=== PATIENT | female | born 1975 | race Caucasian/White ===

== ENCOUNTER 2020-05-16 15:32 | Inpatient (IN) | payer MEDICAID ==
[~2020-05-16] VITALS: Ht 165.1 cm; Wt 80.3 kg
[2020-05-16] MEDS ORDERED: ONDANSETRON HCL 4MG/2ML INJ IV STA (16:36)
[2020-05-16] MEDS ORDERED: SODIUM CHLORIDE 0.9% 1,000 ML IV ONE (16:36)
[2020-05-16] MEDS ORDERED: FAMOTIDINE 20MG/2ML VIAL IV STA (16:36)
[2020-05-16 17:01] LABS: HEMATOCRIT. 43.2 % (36.0-48.0); HEMOGLOBIN. 14.8 g/dL (12.0-16.0); MEAN CORPUSCULAR HEMOGLOBIN 29.8 pg (28.0-32.0); MEAN CORPUSCULAR VOLUME 86.8 fL (81.0-99.0); MEAN PLATELET VOLUME 8.5 fl (7.4-10.4); PLATELET 322 x1000/uL (130-400); RED BLOOD CELL COUNT 4.98 mill/uL (4.2-5.4); RED CELL DISTRIBUTION WIDTH 13.5 % (11.6-14.6)
[2020-05-16 17:07] LABS: CHLORIDE 101 mEq/L (98-107)
[2020-05-16 17:10] LABS: PROTHROMBIN TIME 10.4 sec (9.6-11.0)
[2020-05-16 17:11] LABS: ETHANOL BLOOD < 10 mg/dL
[2020-05-16 17:16] LABS: CLARITY URINE TURBID (CLEAR); COLOR URINE YELLOW (YELLOW); KETONES URINE 4+ (NEGATIVE); LEUKOCYTE ESTERASE URINE NEGATIVE (NEGATIVE); NITRITE URINE NEGATIVE (NEGATIVE); OCCULT BLOOD URINE TRACE (NEGATIVE); PH URINE 5.5 (4.5-8.0); PROTEIN URINE 1+ (NEGATIVE); SPECIFIC GRAVITY URINE 1.029 (1.005-1.030); UROBILINOGEN URINE 0.2 E.U./dL (0.2-1.0)
[2020-05-16 17:24] LABS: HCG SCREEN NEGATIVE
[2020-05-16 17:29] LABS: *BARBITURATES SCREEN URINE NEGATIVE (NEGATIVE); *BENZODIAZEPINES SCREEN URINE NEGATIVE (NEGATIVE); *COCAINE SCREEN URINE NEGATIVE (NEGATIVE); CANNABINOID URINE SCREEN NEGATIVE (NEGATIVE); METHADONE URINE SCREEN NEGATIVE (NEGATIVE); OPIATES URINE SCREEN NEGATIVE (NEGATIVE); PHENCYCLIDINE URINE SCREEN NEGATIVE (NEGATIVE)
[2020-05-16 17:31] LABS: *AMPHETAMINES SCREEN URINE NEGATIVE (NEGATIVE)
[2020-05-16 17:55] LABS: PLATELET ESTIMATE NORMAL
[2020-05-16] MEDS ORDERED: MORPHINE SULFATE 4 MG/ML CPJ (NOT FOR IM USE) IV ONE (18:15)
[2020-05-16] MEDS ORDERED: MORPHINE SULFATE 4 MG/ML CPJ (NOT FOR IM USE) IV PRN (18:30)
[2020-05-16] MEDS ORDERED: CEFTRIAXONE 1 G PREMIX 50 ML IV ONE (18:30)
[2020-05-16] MEDS ORDERED: PIPERACILLIN/TAZ 3.375G PREMIX 50 ML IV NR (18:30)
[2020-05-16] MEDS ORDERED: ACETAMINOPHEN 325MG TABLET PO PRN (18:30)
[2020-05-16] MEDS ORDERED: MORPHINE SULFATE 2 MG/ML CPJ (NOT FOR IM USE) IV PRN (18:30)
[2020-05-16] MEDS: ONDANSETRON HCL 4MG/2ML INJ IV PRN ×2 (18:44→22:27)
[2020-05-16] MEDS: PANTOPRAZOLE SODIUM 40 MG/VIAL IV SCH (19:15)
[2020-05-16] MEDS: HEPARIN 5000 UNITS/ML VIAL SUBCUT SCH (22:27)
[2020-05-16] MEDS: SODIUM CHLORIDE 0.9% 1,000 ML IV SCH (22:27)
[2020-05-17] MEDS: ONDANSETRON HCL 4MG/2ML INJ IV PRN ×2 (00:24→06:05)
[2020-05-17 04:00] VITALS: BP 139/92
[2020-05-17 04:52] VITALS: BP 132/92
[2020-05-17] MEDS ORDERED: PROT40 MT (05:54)
[2020-05-17] MEDS ORDERED: LISI-186 MT (05:55)
[2020-05-17] MEDS ORDERED: AMLO10TA80 MT (05:55)
[2020-05-17] MEDS ORDERED: NAPR500T7 MT (05:55)
[2020-05-17] MEDS ORDERED: PIPERACILLIN/TAZOBACTAM 3.375 G in DEXTROSE 5% WATER 50 ML IV SCH ×3 (06:00)
[2020-05-17] MEDS: SODIUM CHLORIDE 0.9% 1,000 ML IV SCH (06:07)
[2020-05-17 07:32] LABS: BASOPHILS % 0.3 % (0.0-2.0); HEMATOCRIT. 39.5 % (36.0-48.0); HEMOGLOBIN. 13.5 g/dL (12.0-16.0); LYMPHOCYTES % 11.1 % (20.0-50.0); MEAN CORPUSCULAR HEMOGLOBIN 29.8 pg (28.0-32.0); MEAN CORPUSCULAR VOLUME 87.3 fL (81.0-99.0); MEAN PLATELET VOLUME 8.5 fl (7.4-10.4); NEUTROPHILS % 78.6 % (40.0-76.0); PLATELET 276 x1000/uL (130-400); RED BLOOD CELL COUNT 4.53 mill/uL (4.2-5.4); RED CELL DISTRIBUTION WIDTH 13.6 % (11.6-14.6)
[2020-05-17 07:46] LABS: CHLORIDE 105 mEq/L (98-107)
[2020-05-17 08:00] VITALS: BP 142/92
[2020-05-17] MEDS: PANTOPRAZOLE SODIUM 40 MG/VIAL IV SCH (08:47)
[2020-05-17] MEDS: HEPARIN 5000 UNITS/ML VIAL SUBCUT SCH ×2 (08:47→20:35)
[2020-05-17] MEDS ORDERED: SKIN ADHESIVE 0.7 GM EA TOP ONE (10:29)
[2020-05-17] MEDS ORDERED: BUPIVACAINE HCL 0.5% (5MG/ML) 50ML ONE (10:30)
[2020-05-17] MEDS ORDERED: BACITRACIN 50,000 UNITS/VIAL ONE (10:30)
[2020-05-17] MEDS ORDERED: ONDANSETRON HCL 4MG/2ML INJ IV PRN ×2 (11:45→14:00)
[2020-05-17] MEDS ORDERED: MORPHINE SULFATE 2 MG/ML CPJ (NOT FOR IM USE) IV PRN (11:45)
[2020-05-17] MEDS ORDERED: MORPHINE SULFATE 4 MG/ML CPJ (NOT FOR IM USE) IV PRN (11:45)
[2020-05-17] MEDS ORDERED: HYDROCODONE/ACETAMINOPHEN 5/325MG TABLET PO PRN ×2 (11:45)
[2020-05-17] MEDS ORDERED: PROPOFOL 200MG/20ML VIAL IV ONE (11:49)
[2020-05-17] MEDS ORDERED: ROCURONIUM BROMIDE 10MG/ML VIAL 5ML IV ONE (11:49)
[2020-05-17] MEDS ORDERED: HYDROMORPHONE HCL/PF 2MG/ML (OR) ONE (11:49)
[2020-05-17] MEDS ORDERED: DEXAMETHASONE 4MG/ML 1ML VIAL ONE (11:51)
[2020-05-17 12:00] VITALS: BP 139/92
[2020-05-17] MEDS ORDERED: LABETALOL 5MG/ML SYR 20 MG/4 ML SYRINGE IV PRN (14:00)
[2020-05-17] MEDS ORDERED: MEPERIDINE HCL/PF 25MG/ML CPJ IV PRN (14:00)
[2020-05-17] MEDS ORDERED: HYDROMORPHONE HCL/PF 2MG/ML CPJ IV PRN (14:00)
[2020-05-17] MEDS ORDERED: HYDROMORPHONE PCA 10MG/50ML IV PRN ×2 (14:25→14:30)
[2020-05-17] MEDS ORDERED: ONDANSETRON INJ IV PRN (14:30)
[2020-05-17] MEDS ORDERED: NALOXONE INJ IV PRN (14:30)
[2020-05-17] MEDS ORDERED: DIPHENHYDRAMINE INJ IV PRN (14:30)
[2020-05-17 16:00] VITALS: BP 137/94
[2020-05-17] MEDS: SODIUM CHLORIDE 0.9% INJ 3ML FLUSH IVF SCH ×2 (16:39→22:00)
[2020-05-17] MEDS: DEXT 5%/0.45% NACL KCL 20MEQ/L 1,000 ML IV SCH (16:39)
[2020-05-17] MEDS: PIPERACILLIN/TAZOBACTAM 3.375 G in DEXT 5% WATER 100 ML IV SCH (17:02)
[2020-05-17 20:00] VITALS: BP 114/76
[2020-05-18] VITALS (7 sets, daily range): BP systolic 115–132; BP diastolic 65–82
[2020-05-18] MEDS: PIPERACILLIN/TAZOBACTAM 3.375 G in DEXT 5% WATER 100 ML IV SCH ×4 (00:11→17:31)
[2020-05-18] MEDS: DEXT 5%/0.45% NACL KCL 20MEQ/L 1,000 ML IV SCH ×2 (00:14→09:41)
[2020-05-18] MEDS: SODIUM CHLORIDE 0.9% INJ 3ML FLUSH IVF SCH ×3 (06:00→21:19)
[2020-05-18 08:34] LABS: CHLORIDE 106 mEq/L (98-107)
[2020-05-18 08:37] LABS: BASOPHILS % 0.2 % (0.0-2.0); HEMATOCRIT. 33.9 % (36.0-48.0); HEMOGLOBIN. 11.3 g/dL (12.0-16.0); LYMPHOCYTES % 14.3 % (20.0-50.0); MEAN CORPUSCULAR HEMOGLOBIN 29.1 pg (28.0-32.0); MEAN CORPUSCULAR VOLUME 87.7 fL (81.0-99.0); MEAN PLATELET VOLUME 8.6 fl (7.4-10.4); NEUTROPHILS % 76.5 % (40.0-76.0); PLATELET 256 x1000/uL (130-400); RED BLOOD CELL COUNT 3.87 mill/uL (4.2-5.4); RED CELL DISTRIBUTION WIDTH 13.6 % (11.6-14.6)
[2020-05-18] MEDS: PANTOPRAZOLE SODIUM 40 MG/VIAL IV SCH (09:42)
[2020-05-18] MEDS: HEPARIN 5000 UNITS/ML VIAL SUBCUT SCH ×2 (09:45→21:19)
[2020-05-19] MEDS: PIPERACILLIN/TAZOBACTAM 3.375 G in DEXT 5% WATER 100 ML IV SCH ×5 (00:11→23:40)
[2020-05-19 04:55] VITALS: BP 123/79
[2020-05-19] MEDS: SODIUM CHLORIDE 0.9% INJ 3ML FLUSH IVF SCH ×2 (06:00→21:13)
[2020-05-19 07:21] LABS: BASOPHILS % 0.3 % (0.0-2.0); EOSINOPHILS % 0.8 % (0.0-5.0); HEMATOCRIT. 30.3 % (36.0-48.0); HEMOGLOBIN. 10.4 g/dL (12.0-16.0); LYMPHOCYTES % 28.1 % (20.0-50.0); MEAN CORPUSCULAR HEMOGLOBIN 30.1 pg (28.0-32.0); MEAN CORPUSCULAR VOLUME 87.5 fL (81.0-99.0); MEAN PLATELET VOLUME 8.5 fl (7.4-10.4); MONOCYTES % 7.5 % (2.0-8.0); NEUTROPHILS % 63.3 % (40.0-76.0); PLATELET 213 x1000/uL (130-400); RED BLOOD CELL COUNT 3.47 mill/uL (4.2-5.4); RED CELL DISTRIBUTION WIDTH 13.7 % (11.6-14.6)
[2020-05-19 07:46] LABS: CHLORIDE 106 mEq/L (98-107)
[2020-05-19 08:00] VITALS: BP 123/82
[2020-05-19] MEDS: PANTOPRAZOLE SODIUM 40 MG/VIAL IV SCH (09:52)
[2020-05-19] MEDS: HEPARIN 5000 UNITS/ML VIAL SUBCUT SCH ×2 (09:52→21:13)
[2020-05-19 12:00] VITALS: BP 121/78
[2020-05-19] MEDS ORDERED: TOPUD PO (13:40)
[2020-05-19] MEDS ORDERED: POTASSIUM CHLORIDE 20MEQ TABLET SR PO NR (13:45)
[2020-05-19 16:00] VITALS: BP 124/80
[2020-05-19 20:25] VITALS: BP 131/80
[2020-05-19 23:48] VITALS: BP 135/83
[2020-05-20 03:45] VITALS: BP 112/76
[2020-05-20 04:39] VITALS: BP 112/76
[2020-05-20] MEDS: PIPERACILLIN/TAZOBACTAM 3.375 G in DEXT 5% WATER 100 ML IV SCH (05:20)
[2020-05-20] MEDS: SODIUM CHLORIDE 0.9% INJ 3ML FLUSH IVF SCH (05:20)
[2020-05-20 06:46] LABS: BASOPHILS % 0.4 % (0.0-2.0); EOSINOPHILS % 2.1 % (0.0-5.0); HEMATOCRIT. 29.4 % (36.0-48.0); HEMOGLOBIN. 10.1 g/dL (12.0-16.0); LYMPHOCYTES % 27.8 % (20.0-50.0); MEAN CORPUSCULAR HEMOGLOBIN 30.3 pg (28.0-32.0); MEAN CORPUSCULAR VOLUME 88.1 fL (81.0-99.0); MEAN PLATELET VOLUME 8.6 fl (7.4-10.4); MONOCYTES % 7.8 % (2.0-8.0); NEUTROPHILS % 61.9 % (40.0-76.0); PLATELET 226 x1000/uL (130-400); RED BLOOD CELL COUNT 3.34 mill/uL (4.2-5.4); RED CELL DISTRIBUTION WIDTH 13.6 % (11.6-14.6)
[2020-05-20 06:56] LABS: CHLORIDE 105 mEq/L (98-107)
== END 2020-05-20 09:18 | disposition home or self-care (01) | DRG 710 ==
LOC: ER 15:32 → MICUSO 18:28 → 6EST 21:45 → MICUSO 21:46 → 6EST 05-17 01:58
PROVIDERS: ADMIT Internal Medicine; ATTEND Internal Medicine
PROC: 0D9670Z Drainage of Stomach with Drainage Device, Via Natural or Artificial Opening (ICD-10-PCS; 2020-05-16)
PROC: 0WUF0JZ Supplement Abdominal Wall with Synthetic Substitute, Open Approach (ICD-10-PCS; principal; 2020-05-17)
DX: A41.9 Sepsis, unspecified organism (principal); K43.6 Other and unspecified ventral hernia with obstruction, without gangrene; K56.609 Unspecified intestinal obstruction, unspecified as to partial versus complete obstruction; E66.9 Obesity, unspecified; E87.1 Hypo-osmolality and hyponatremia; I10 Essential (primary) hypertension; K29.70 Gastritis, unspecified, without bleeding; K80.20 Calculus of gallbladder without cholecystitis without obstruction; Z20.828 Contact with and (suspected) exposure to other viral communicable diseases; R73.9 Hyperglycemia, unspecified; R33.9 Retention of urine, unspecified; Z68.29 Body mass index [BMI] 29.0-29.9, adult; Z79.899 Other long term (current) drug therapy
CPT/HCPCS: 36415; 71045; 74176; 80053; 80076; 80305; 80320; 81003; 82248; 83036; 83735; 84703; 85025; 87426; 88302; 93005; 99285; C1781; C9113; J0696; J1100; J1170; J1644; J2270; J2405; J2543; J2704; J3490; J7030; J7060; G0480